=== PATIENT | female | born 1930 | race Caucasian/White ===

== ENCOUNTER 2019-10-11 11:16 | Emergency (ER) | payer MEDICARE, OTHER ==
--- NOTE | 2019-10-11 13:30 | UC ---
Hip/Pelvis Pain - HPI Summary HPI Summary: 88-year-old woman comes in with chief complaint of left hip pain. Started 3 days ago. No fall denies any trauma. Pain is worse with weightbearing and movement. Pain is better with rest. She has been putting heat on the area. Did take some aspirin. She is able to ambulate but with pain. - History Of Current Complaint Chief Complaint: UCLowerExtremity Stated Complaint: LEFT HIP PAIN Time Seen by Provider: 10/11/19 13:16 Pain Intensity: 8 - Allergies/Home Medications Allergies/Adverse Reactions: Allergies Allergy/AdvReac Type Severity Reaction Status Date / Time No Known Allergies Allergy Verified 10/11/19 11:51 Home Medications: Home Medications Multivitamin [Multivitamins] 1 tab PO DAILY 06/11/13 [History Confirmed 10/11/19 ] Raloxifene (NF) [Evista(NF)] 1 tab PO DAILY 05/11/16 [History Confirmed 10/11/19 ] Aspirin 1 tab PO ONCE PRN 10/11/19 [History Confirmed 10/11/19] PMH/Surg Hx/FS Hx/Imm Hx Previously Healthy: Yes - osteopenia - Surgical History Surgical History: Yes Surgery Procedure, Year, and Place: D+C - Family History Known Family History: Positive: None Negative: Blood Disorder - Social History Alcohol Use: Daily Substance Use Type: None Smoking Status (MU): Never Smoked Tobacco Review of Systems All Other Systems Reviewed And Are Negative: Yes Constitutional: Positive: Negative Skin: Positive: Negative Eyes: Positive: Negative ENT: Positive: Negative Respiratory: Positive: Negative Cardiovascular: Positive: Negative Motor: Positive: Negative Neurovascular: Positive: Negative Musculoskeletal: Positive: Other: - SEE HPI Neurological/Mental Status: Positive: Negative Psychological: Positive: Negative Is Patient Immunocompromised?: No Physical Exam Triage Information Reviewed: Yes Appearance: Well-Appearing, Well-Nourished, Pain Distress - MILD WITH LEFT HIP EXAM Vital Signs: Initial Vital Signs Temp 99 F 10/11/19 11:44 Pulse 69 10/11/19 11:44 Resp 18 10/11/19 11:44 BP 145/92 10/11/19 11:44 Pulse Ox 100 10/11/19 11:44 Vital Signs Reviewed: Yes Eye Exam: Normal Eyes: Positive: Conjunctiva Clear Neck: Positive: Supple Respiratory: Positive: No respiratory distress Musculoskeletal: Positive: Other: - Tender to palpation the posterior aspect of the greater trochanter to the left ischial rami. Left hip has full range of motion leg is full strength normal sensation. Neurological: Positive: Alert Psychological: Positive: Age Appropriate Behavior Skin Exam: Normal Hip Injury Course/Dx - Course Course Of Treatment: Map Plotter: Chaim Brown Daniel, ([id number]) Night Assistant: DINA ( NUANCE) Report Date: 10/11/2019 12:41:00 Report Status: Final ====== Start of Report Content Patient Name: CATHERINE DOWNEY Medical Record#: [id number] Ordering Physician: Jerry Bowers MD Acct.#: [id number] : Age: 88 Sex: F Location: [facility] Exam Date: 10/11/19 1159 ADM Status: REG ER Order Information: HIP LEFT 2 VIEWS AND PELVIS Accession Number: [id number] CPT: 46040 HISTORY: PAIN . COMPARISONS: None relevant available at the time of dictation. VIEWS: 3, Frontal view of the pelvis with frontal and frog-leg views of the left hip FINDINGS: BONE DENSITY: There is diffuse osteopenia. BONES: There is no displaced fracture. 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 ALIGNMENT: There is no dislocation. SOFT TISSUES: There is peripheral arterial calcification. OTHER FINDINGS: There is a scoliotic curvature of the lower lumbar spine. IMPRESSION: OSTEOPENIA. OSTEOARTHRITIS PERIPHERAL ARTERIAL DISEASE. NO ACUTE OSSEOUS INJURY. IF SYMPTOMS PERSIST, RECOMMEND REPEAT IMAGING. <Electronically signed by Chaim Brown MD in OV> 10/11/19 1237 Dictated By: Chaim Brown MD Dictated Date /Time: 10/11/19 1234 Transcribed Date/Time: 10/11/19 1234 Copy to: CC:[facility]; Vince Fofana MD; Jerry Bowers MD Imaging - [facility] Imaging - [facility] Imaging - [facility] [address] [address] ph ([phone]) ph ([phone]) ph ([phone]) End of Report Content I discussed the x-rays with the patient. No fracture is seen. We discussed that some fractures can be missed on plain x-ray and a CT scan would be more definitive for a diagnosis of potential fracture. Given that the patient had not fallen or had any trauma did not get a CT at this time. Plan is to put ice on the area lidocaine patch and take ibuprofen. Patient declined use of a walker she has a cane that she will use. Follow-up with orthopedics. Get reevaluated again right away if worse. - Differential Dx/Diagnosis Provider Diagnosis: Left hip pain Discharge ED - Sign-Out/Discharge Documenting (check all that apply): Patient Departure All imaging exams completed and their final reports reviewed: Yes - Discharge Plan Condition: Stable Disposition: HOME Patient Education Materials: Hip Pain (ED) Referrals: Vince Fofana MD [Primary Care Provider] - Ashwin Salazar MD [Medical Doctor] - Romero Dawson MD [Medical Doctor] - Additional Instructions: FOLLOW UP WITH ORTHOPEDICS. Take ibuprofen 400 mg every 6 hours as needed for the pain. Put ice on the painful area to decrease inflammation. Use a [id number] lidocaine patch over the area of pain to help with the pain. GET REEVALUATED SOONER IF NOT IMPROVED OR WORSE; CONTINUED OR INCREASED PAIN, DIFFICULTY WITH AMBULATION OR ANY QUESTIONS OR CONCERNS. - Billing Disposition and Condition Condition: STABLE Disposition: Home
[2019-10-11 13:46] VITALS: BP 142/96
== END 2019-10-11 13:43 | disposition home or self-care (01) ==
LOC: UCEAST 11:16
DX: M25.552 Pain in left hip (principal); M16.12 Unilateral primary osteoarthritis, left hip; M85.88 Other specified disorders of bone density and structure, other site; I73.9 Peripheral vascular disease, unspecified; Z79.82 Long term (current) use of aspirin
CPT/HCPCS: 99211; G0463